=== PATIENT | female | born 1995 | race Two or more races ===

== ENCOUNTER 2024-09-02 19:50 | Emergency (ER) | payer OTHER ==
[~2024-09-02] VITALS: Ht 182.9 cm; Wt 67.1 kg
[2024-09-02] MEDS ORDERED: ACETAMINOPHEN 500 MG GEL..CAP PO ONE (20:11)
[2024-09-02 23:23] LABS: HEMATOCRIT 38.4 % (36.0-45.00); HEMOGLOBIN 13.1 g/dL (12.0-15.00); MEAN CELL VOLUME 89.3 fL (80.00-100.00); MEAN CORPUSCULAR HEMOGLOBIN 30.4 pg (27.00-32.0); MEAN CORPUSCULAR HGB CONC 34.1 g/dl (32.0-36.0); PLATELET COUNT 224 K/uL (150-450); RED CELL DISTRIBUTION WIDTH 13.4 % (11.5-14.5)
[2024-09-03] MEDS ORDERED: ACETAMINOPHEN500 M1 PO (00:44)
[2024-09-03] MEDS ORDERED: GILTUSS COUGH-118 M1 PO (00:44)
[2024-09-03] MEDS ORDERED: OSEL75CA PO (00:44)
== END 2024-09-03 01:03 | disposition home or self-care (01) ==
LOC: ER 19:53
PROVIDERS: Preventive Medicine Public Health & General Preventive Medicine
DX: J10.1 Influenza due to other identified influenza virus with other respiratory manifestations (principal)